=== PATIENT | female | born 1965 | race Caucasian/White ===

== ENCOUNTER 2018-05-01 11:51 | Outpatient (CLI) | payer BC ==
--- NOTE | 2018-05-01 13:26 | RAD ---
PA CHEST AND RIGHT RIBS FIVE VIEWS: History: Patient fell and hit right side. FINDINGS: Heart size and mediastinum are within normal limits. The lungs are clear of any infiltrative process. No rib fractures are visualized. IMPRESSION: Negative right ribs. POS: TPC
== END 2018-05-01 11:52 | disposition home or self-care (01) ==
LOC: SCSRAD 11:51
PROVIDERS: ATTEND Family Medicine
DX: R07.89 Other chest pain (principal)

== ENCOUNTER 2018-11-15 11:51 | Outpatient (CLI) | payer BC ==
--- NOTE | 2018-11-15 14:28 | MRI ---
MRI OF THE THORACIC SPINE WITHOUT CONTRAST: 11/15/18 COMPARISON: 01/18/18. HISTORY: Injury lifting a piano in June 2018. Mid back pain and low back pain. TECHNIQUE: Multiplanar and multisequence MR imaging of the thoracic spine is provided without contrast. FINDINGS: The sagittal STIR imaging demonstrates no focal area of osseous marrow edema. There are old end plate fractures at T8 and Tf9 levels. There is no anterolisthesis or retrolisthesis noted within the thoracic spine. T1-2: No significant central canal or neural foraminal stenosis. T2-3: No significant central canal or neural foraminal stenosis. T3-4: No significant central canal or neural foraminal stenosis. T4-5: No significant central canal or neural foraminal stenosis. T5-6: No central canal or neural foraminal stenosis. T6-7: No significant central canal or neural foraminal stenosis. T7-8: There is mild disc space narrowing and disc bulge. No central canal or neural foraminal stenosi s. T8-9: There is mild disc bulge and posterior disc osteophyte complex partially effacing the ventral t hecal sac and leading to a mild degree of central canal stenosis, stable. No significant neural goldie inal stenosis. T9-10: There is disc space narrowing, disc desiccation and mild disc bulge with partial effacement of the ventral thecal sac and minimal central canal stenosis. No significant neural foraminal stenosis. T10-11: Mild facet hypertrophy bilaterally but no significant central canal or neural foraminal steno sis. T11-12: Mild bilateral facet hypertrophy. Mild disc bulge. No significant central canal or neural for aminal stenosis. T12-L1: No significant central canal or neural foraminal stenosis. No focal area of abnormal signal intensity is identified within the thoracic cord. IMPRESSION: Chronic findings as detailed above. No significant central canal or neural foraminal stenosis. No sig nificant interval change when compared to the 01/18/18 exam. POS: TPC
--- NOTE | 2018-11-15 14:41 | MRI ---
MRI OF THE LUMBAR SPINE WITHOUT CONTRAST: 11/15/18 COMPARISON: None. HISTORY: Acute lumbar radiculopathy, injury while lifting a piano in June of 2018. TECHNIQUE: Multiplanar and multisequence MR imaging of the lumbar spine is obtained without contrast. FINDINGS: The sagittal STIR imaging demonstrates a focal area of subtle increased signal intensity suggesting b one marrow edema involving the superior end plate of the L4 vertebral body. There is also subtle cont our irregularity involving the superior end plate of L1. This is new when compared to a chest CT perf ormed at [facility] on 05/31/18. This suggests an acute Schmorl's node or a mild superior en d plate compression fracture. There is no retropulsion or loss of vertebral body height at the L1 lev el. No additional areas of osseous marrow edema are seen. On the basis of five lumbar type vertebral bodies, conus medullaris terminates at T12-L1. T12-L1: No central canal or neural foraminal stenosis. L1-2: No central canal or neural foraminal stenosis. L2-3: Mild bilateral facet hypertrophy. Intervertebral disc height and signal intensity is within nor mal limits. L3-4: Mild bilateral facet hypertrophy. Intervertebral disc height and signal intensity is within nor mal limits with no significant central canal or neural foraminal stenosis. L4-5: Minimal disc bulge. Mild bilateral facet hypertrophy. No significant central canal or neural fo raminal stenosis. L5-S1: There is mild bilateral facet hypertrophy. There is no significant central canal or neural for aminal stenosis. Review of the retroperitoneal structures appears grossly unremarkable. IMPRESSION: Mild irregularity involving the superior end plate of L1 with associated vertebral body edema. This may represent an acute Schmorl's node or a mild acute/subacute superior end plate fracture. No retrop ulsion or vertebral body height loss noted. POS: TPC
--- NOTE | 2018-11-15 15:40 | RAD ---
Exam: 3 views of lumbar spine HISTORY: Lifting injury. Low back pain. Old T8-T10 compression fractures. FINDINGS: In the neutral lateral weightbearing projection, no fracture. Disc space heights are preser obi. No malalignment. No abnormal motion upon flexion or extension. IMPRESSION: Unremarkable lumbar spine radiograph series. No significant spondylolisthesis in the neut ral position. No abnormal motion upon extension or flexion
== END 2018-11-15 11:52 | disposition home or self-care (01) ==
LOC: SCSMRI 11:51
PROVIDERS: ATTEND Neurological Surgery
DX: S32.019A Unspecified fracture of first lumbar vertebra, initial encounter for closed fracture (principal); M54.16 Radiculopathy, lumbar region; M54.6 Pain in thoracic spine; M48.04 Spinal stenosis, thoracic region; M51.24 Other intervertebral disc displacement, thoracic region; M47.814 Spondylosis without myelopathy or radiculopathy, thoracic region; Z87.81 Personal history of (healed) traumatic fracture
CPT/HCPCS: 72100; 72146; 72148